=== PATIENT | female | born 1985 | race Caucasian/White ===

== ENCOUNTER 2018-11-15 21:18 | Emergency (ER) | payer SELFPAY ==
[~2018-11-15] VITALS: Ht 152.4 cm; Wt 82.6 kg
[2018-11-15] MEDS ORDERED: diphenhydrAMINE 25 MG TAB (BENADRYL) PO ONE (22:00)
[2018-11-15] MEDS ORDERED: DEXAMETHASONE 10 MG/ML (DECADRON) 1 ML VIAL IM ONE (22:00)
--- NOTE | 2018-11-15 22:09 | ED Integumentary General ---
General Chief Complaint: Bite-Animal/Human/Insect Stated Complaint: R HAND MIDDLE FINGER SWELLING/L ARM RED/SWELLING Source: patient Exam Limitations: no limitations History of Present Illness Date Seen by Provider: Nov 15, 2018 Time Seen by Provider: 22:06 Initial Comments To ER with reports of right hand middle finger swelling redness and itching beginning about an hour ago. Did not see anything bite her. She also awakened yesterday morning with a red itchy swollen lesion to the outer aspect of the left upper arm circular in shape measuring about 5-6 cm. Has not had any ticks on her Timing/Duration: just prior to arrival Severity: moderate Associated Symptoms: denies symptoms Allergies and Home Medications Allergies Coded Allergies: No Known Drug Allergies (Unverified , 11/15/18) Patient Home Medication List Home Medication List Reviewed: Yes Review of Systems Review of Systems Constitutional: see HPI EENTM: see HPI Respiratory: no symptoms reported Cardiovascular: no symptoms reported Genitourinary: no symptoms reported Musculoskeletal: see HPI Skin: no symptoms reported Psychiatric/Neurological: No Symptoms Reported Past Pmanfyj-Bmimwv-Boljxd Hx Patient Social History Recent Foreign Travel: No Contact w/Someone Who Travel: No Physical Exam Vital Signs Capillary Refill : General Appearance: WD/WN, no apparent distress HEENT: PERRL/EOMI, normal ENT inspection, TMs normal Respiratory: no respiratory distress, no accessory muscle use Gastrointestinal: normal bowel sounds, non tender Extremities: other (limited ability to make a fist on the right because of the circumferential swelling of the middle finger. There is no pain with active or passive range of motion, there is a nodule middle phalanx ulnar side dorsally which seems to be the nidus of this. This appears to be an insect bite.) Neurologic/Psychiatric: alert, normal mood/affect, oriented x 3 Skin: normal color, warm/dry Progress/Results/Core Measures Results/Orders My Orders Orders - NEIL HOOKS APRN Diphenhydramine Tablet (Benadryl Tablet) (11/15/18 22:00) Dexamethasone Injection (Decadron Inject (11/15/18 22:00) Departure Impression Primary Impression: Insect bites Qualified Codes: W57.XXXA - Bitten or stung by nonvenomous insect and other nonvenomous arthropods, initial encounter Disposition: 01 HOME, SELF-CARE Condition: Stable Departure-Patient Inst. Decision time for Depature: 22:08 Referrals: NO,LOCAL PHYSICIAN (PCP/Family) Primary Care Physician Patient Instructions: Insect Bites and Stings Add. Discharge Instructions: 1. Cold compress to the area 2. One Benadryl every 4-6 hours 3. All discharge instructions reviewed with patient and/or family. Voiced understanding. NEIL HOOKS APRN Nov 15, 2018 22:09
[2018-11-15 22:30] VITALS: BP 146/95
== END 2018-11-15 22:30 | disposition home or self-care (01) ==
LOC: ER 21:20
DX: S60.561A Insect bite (nonvenomous) of right hand, initial encounter (principal); W57.XXXA Bitten or stung by nonvenomous insect and other nonvenomous arthropods, initial encounter
CPT/HCPCS: 99284